=== PATIENT | male | born 1970 | race Hispanic/Latino ===

== ENCOUNTER → 2025-03-27 | Outpatient (CLI) | payer OTHER ==
--- NOTE | 2025-03-28 08:55 | HMCIMG ---
EXAM: CT Thoracic Spine Without IV Contrast CLINICAL HISTORY: Pain. TECHNIQUE: Spiral axial CT images through the thoracic spine were acquired, reconstructed in axial and sagittal projections, and imaged using soft tissue and bone algorithms. Reformatted/MPR images were performed. A CT scan is done according to ALARA (As Low as Reasonably Achievable). CONTRAST: None. COMPARISON: None provided. FINDINGS: The cervicothoracic and thoracolumbar junction is intact. No acute fracture. Normal thoracic curvature. Age-indeterminate anterior wedge compression fracture of the T7 thoracic vertebra. The rest of the visualized thoracic and lumbar vertebrae are normal in height. Normal bone density. The prevertebral and paravertebral soft tissues are within normal limits. [id number] findings are as follows: C7-T1: No disc bulge or herniation. No neural foramina, lateral recess, or spinal canal stenosis. T1-T2: No disc bulge or herniation. No neural foramina, lateral recess, or spinal canal stenosis. T2-T3: No disc bulge or herniation. No neural foramina, lateral recess, or spinal canal stenosis. T3-T4: No disc bulge or herniation. Mild degenerative facet arthropathy and mild narrowing of the neural foramina. No spinal canal stenosis. T4-T5: No disc bulge or herniation. Mild degenerative facet arthropathy and mild narrowing of the neural foramina. No spinal canal stenosis. T5-T6: No disc bulge or herniation. Mild degenerative facet arthropathy and mild narrowing of the neural foramina. No spinal canal stenosis. T6-T7: Mild degenerative reduction in disc space. Mild bilateral facet arthropathy and mild narrowing of the neural foramina. No signal disc bulge. T7-T8: Age-indeterminate anterior wedge compression fracture of the T7 thoracic vertebra. Minimal 2 mm disc osteophyte complex bulge with bilateral facet arthropathy, left more than right. No spinal canal stenosis. T8-T9: No disc bulge or herniation. Mild bilateral facet arthropathy and mild narrowing of the bilateral neural foramina. No spinal canal stenosis. T9-T10: No disc bulge or herniation. No neural foramina, lateral recess, or spinal canal stenosis. T10-T11: No disc bulge or herniation. No neural foramina, lateral recess, or spinal canal stenosis. T11-T12: No disc bulge or herniation. No neural foramina, lateral recess, or spinal canal stenosis. T12-L1: No disc bulge or herniation. No neural foramina, lateral recess, or spinal canal stenosis. Mild hiatus hernia. IMPRESSION: Age-indeterminate anterior wedge compression fracture of the T7 thoracic vertebra. No canal stenosis. The rest of the visualized thoracic and lumbar vertebrae are normal in height. May consider further evaluation with MRI. Degenerative facet arthropathy and mild narrowing of the neural foramina from T3-T4 through T8-T9 level. Mild hiatus hernia. /[place]
== END | disposition home or self-care (01) ==
LOC: RAH 12:43
PROVIDERS: ATTEND Chiropractor
DX: S22.060A Wedge compression fracture of T7-T8 vertebra, initial encounter for closed fracture (principal); M47.819 Spondylosis without myelopathy or radiculopathy, site unspecified; M51.34 Other intervertebral disc degeneration, thoracic region; K44.9 Diaphragmatic hernia without obstruction or gangrene; X58.XXXA Exposure to other specified factors, initial encounter; Y93.89 Activity, other specified; Y92.89 Other specified places as the place of occurrence of the external cause; Y99.8 Other external cause status
CPT/HCPCS: 72128